=== PATIENT | female | born 1960 | race African-American/Black ===

== ENCOUNTER 2019-12-25 20:02 | Emergency (ER) | payer BC ==
[~2019-12-25] VITALS: Ht 157.5 cm; Wt 77.6 kg
[~2019-12-25 20:02] MED LIST: AMLODIPINE; LISINOPRIL5 MG PO
[2019-12-25 20:06] VITALS: BP 174/103
[2019-12-25] MEDS ORDERED: LEVOTHYROXINE75 MCG PO (20:12)
[2019-12-25] MEDS ORDERED: ZOCOR 10 MG TAB10 M1 PO (20:12)
[2019-12-25] MEDS ORDERED: LOSARTAN POTAS100 MG PO (20:12)
== END 2019-12-25 20:45 | disposition home or self-care (01) ==
LOC: ER 20:02
DX: S01.112A Laceration without foreign body of left eyelid and periocular area, initial encounter (principal); I10 Essential (primary) hypertension; Z79.899 Other long term (current) drug therapy; W22.8XXA Striking against or struck by other objects, initial encounter; Y93.89 Activity, other specified; Y92.89 Other specified places as the place of occurrence of the external cause; Y99.9 Unspecified external cause status

== ENCOUNTER 2020-02-15 04:20 | Emergency (ER) | payer BC ==
[~2020-02-15] VITALS: Ht 154.9 cm; Wt 70.8 kg
[~2020-02-15 04:20] MED LIST changes: +LEVOTHYROXINE75 MCG PO; +LOSARTAN POTAS100 MG PO; +ZOCOR 10 MG TAB10 M1 PO
[2020-02-15 05:55] LABS: ABSOLUTE NEUTROPHILS 3.7 thou/uL (1.4-8.2); BASOPHILS 2.2 % (0.0-2.0); EOSINOPHILS 4.1 % (0.0-3.0); HEMATOCRIT 43.8 % (37.0-47.0); HEMOGLOBIN 14.4 gm/dL (12.0-15.0); LYMPHOCYTES 31.3 % (24.0-44.0); MCH 31.6 pg (26.0-34.0); MCHC 32.9 g/dL (28.0-37.0); MCV 96.3 fL (80.0-100.0); MONOCYTES 10.1 % (1.0-8.0); PLATELET COUNT 309 thou/uL (150-400); POLYS 52.3 % (36.0-66.0); RBC 4.55 mil/uL (4.20-5.00); RDW 13.7 % (10.5-14.5); WBC 7.1 thou/uL (4.0-11.0)
[2020-02-15 06:02] LABS: CALCIUM 8.9 mg/dL (8.5-10.1); CREATININE 0.7 mg/dL (0.6-1.0); POTASSIUM 3.4 mmol/L (3.5-5.1)
[2020-02-15 06:10] LABS: TROPONIN-I 0.06 ng/mL (<0.06)
--- NOTE | 2020-02-15 08:55 | EKG ---
[facility] [place] [address] ELECTROCARDIOGRAM REPORT Name: M[place]O [place] Room #: [facility]#: [id number] Admission: 02/15/20 Attend Phys: Discharge: Date of : 60 Report #: [id number] THIS REPORT FOR: cc: FAM - No family physician/PCP FAM - No family physician/PCP Huy Tello MD [facility] THIS REPORT FOR: //name// [facility] ED Test Date: 2020-02-15 Test Time: 04:39:04 Pat Name: MANDO LAKE Department: Room: Gender: Boxer Operator: [facility] : 1960 Requested By: Chadd Lynn Order Number: [id number] MD: Huy Tello Measurements Intervals [place] Rate: 69 P: 52 RI: 162 QRS: 9 QRSD: 91 T: 121 QT: 429 QTc: 460 Interpretive Statements Sinus rhythm LAE, consider biatrial enlargement LVH with secondary repolarization abnormality Compared to ECG 07/31/2010 14:13:21 T wave abnormality is less pronounced Sinus bradycardia no longer present Electronically Signed On 02-15-2020 8:55:30 CDT by Huy Tello [email or web address] <ELECTRONICALLY SIGNED> By: Huy Tello MD, FAC 02/15/20 [id number] Huy Tello MD, [facility] /EPI
[2020-02-15 09:17] VITALS: BP 160/110
== END 2020-02-15 09:17 | disposition home or self-care (01) ==
LOC: ER 04:20
PROVIDERS: Emergency Medicine
DX: R00.2 Palpitations (principal); I10 Essential (primary) hypertension; F17.210 Nicotine dependence, cigarettes, uncomplicated; Z79.899 Other long term (current) drug therapy